=== PATIENT | female | born 1945 | race African-American/Black ===

== ENCOUNTER 2017-11-07 21:24 | Inpatient (IN) | payer OTHER ==
[~2017-11-07] VITALS: Ht 162.6 cm; Wt 53.5 kg
--- NOTE | ~2017-11-07 | PATH ---
[facility] [address] [place] [address] PATHOLOGY RPT PROCEDURE Name: ROSIBEL TAVARES Room #: 460-P [facility] IN M.R.#: [id number] Admission: 11/08/17 Date of : 45 Discharge: Report #: [id number] Path Case #: [id number] [facility] Accession Number: [id number] . 01 Material submitted: . LIVER BIOPSY . 01 Clinical history: . Generalized intrabdominal and pelvic swelling, mass and lump . 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 S/11/13/2017 . 02 Comment: Examination shows a small blue cell malignancy. Areas of necrosis are identified as well. Non-neoplastic liver parenchyma is not present. A portion of this specimen was sent for flow cytometric analysis to [facility] ([id number]). That analysis showed low viability specimen. Please see separate report for complete details. . Based on the morphology, multiple immunohistochemical stains are performed on Block A2. TTF shows strong nuclear reactivity. AE1/AE3 shows Golgi-like perinuclear reactivity. Synaptophysin shows strong reactivity. Chromogranin is nonreactive. CD45 is nonreactive. P63 is nonreactive, and CDX2 is nonreactive as well. The reactive immunohistochemical stains support the diagnosis rendered. . Co-review: Dr. Adrien oGrdon . Findings are telephoned to Dr. Moreira at 10:57 a.m. on 11/13/2017. . . (IUV:alfonzo; 11/13/2017) . 02 Electronically signed: . Aydee Johnston MD, Pathologist NPI- [id number] . 01 Gross description: . The specimen is received in formalin, labeled "Rosibel Tavares and liver biopsy", are 3 arguelles-wolfe needle cores measuring 0.5 cm, 1.1 cm and 1.5 cm in length and up to 0.1 cm in diameter. Specimen is entirely submitted in A1-A3. (SWS; 11/11/2017) [address] [address] PATHOLOGY RPT PROCEDURE Name: ROSIBEL TAVARES Room #: 460-P ADM IN M.R.#: [id number] Admission: 11/08/17 Date of : 45 Discharge: Report #: [id number] Path Case #: [id number] SHS/SHS . 02 Pathologist provided ICD-10: C78.7 . 02 CPT . 222766, X34162, V58629 Performed at: [address], [place], [place] [id number] MD Vivek Delong MD Phone: [phone] Performed at: [address] [id number] MD Aydee Johnston MD Phone: [phone]
--- NOTE | ~2017-11-07 | PATH ---
[facility] [address] [place] [address] PATHOLOGY RPT PROCEDURE Name: ROSIBEL TAVARES Room #: 460-P [facility] IN .R.#: [id number] Admission: 11/08/17 Date of : 45 Discharge: Report #: [id number] Path Case #: [id number] Note LCA Accession Number: [id number] TESTS RESULT FLAG UNITS REF RANGE LAB Clinician Provided Cytology Information No. of containers..01 Other (Miscellaneous) Source: 01 PLEURAL FLUID DIAGNOSIS: 02 PLEURAL FLUID NEGATIVE FOR MALIGNANT CELLS. THIS INTERPRETATION INCLUDES EVALUATION OF A CELL BLOCK. RARE MESOTHELIAL CELLS AMIDST CHRONIC INFLAMMATORY CELLS IDENTIFIED. SCANTLY CELLULAR SPECIMEN. Signed out by: 02 Aydee Johnston MD, Pathologist NPI- [id number] Performed by: 03 Eunice Tsai, Personal Carer ([facility]) Gross description: 01 12ML, RED, CLOUDY /LCS FLAG LEGEND: L-Low Normal,H-High Normal,LL-Alert Low,HH-Alert High <-Panic Low,>-Panic High,A-Abnormal,AA-Critical Abnormal Performed at: [address] [place] [address] Vivek Delong MD, [address] [address] Aydee Johnston MD, 03 [place] [id number] [address] [address] Rahul Anglin MD, Performed at: [address], [place], [place] [id number] MD Vivek Delong MD Phone: [phone]
--- NOTE | ~2017-11-07 | HC ---
[facility] [place] [address] CONSULTATION Name: ROSIBEL TAVARES Room #: 460-P ADM IN M.R.#: [id number] Admission: 11/08/17 Attend Phys: Margoth Moreira MD Discharge: Date of : 45 Report #: [id number] THIS REPORT FOR: //name// CC: Margoth Hope DATE OF SERVICE: 11/13/2017 PULMONARY CONSULTATION PRIMARY CARE PHYSICIAN: Dr. Hope. REFERRAL PHYSICIAN: Dr. Arboleda. REASON FOR REFERRAL: Pleural effusion. HISTORY OF PRESENT ILLNESS: The patient is a 72-year-old female who was admitted with abdominal pains. A CT abdomen and pelvis shows pleural effusion. A chest tube has been placed since admission. A pulmonary consultation was requested regarding management of the chest tube and pleural effusion. The patient was diagnosed with small cell lung cancer approximately 7 years ago. She has been followed by Dr. Dial at [facility]. She states that she underwent chemo and radiation therapy involving the right chest where the lung cancer was. She was doing fairly well until for the past several days she has noted lower abdominal pains. With worsening pains, she presented to Emergency Room. CT of the abdomen and pelvis was performed. This revealed a pleural fluid involving the right lower lobe, which appears to be complicated and loculated with dense complex collection of materials within the right lower lobe, liver mass measuring up to 8 cm in diameter, possible necrotic mass and abscess. She then subsequently had a chest tube placed on the right by interventional radiology. She also has a tube placed into the liver. A pulmonary consultation was requested regarding management of the chest tube. Presently, she has mild abdominal discomfort. Otherwise, denies any dyspnea, night sweats or chills or productive cough. She has lost approximately 7 pounds over the last couple of months. [facility] [address] [place] [address] CONSULTATION Name: ROSIBEL TAVARES Room #: 460-P [facility] IN [facility].#: [id number] Admission: 11/08/17 Attend Phys: Margoth Moreira MD Discharge: Date of : 45 Report #: [id number] Otherwise, denies any night sweats, fever or chills. PAST MEDICAL HISTORY: Notable for small cell lung cancer diagnosed in 2011. Of note, the records suggest that the patient was diagnosed with non-small cell, but this was confirmed by the patient stating that she had small cell lung cancer involving the right lung. Radiation and chemotherapy was given, history of hypertension, diabetes mellitus, type 2. ALLERGIES: None to medications. HOME MEDICATIONS: Losartan, Actos, Glucophage, Amaryl, Cardizem. FAMILY HISTORY: Noncontributory. SOCIAL HISTORY: The patient continues to smoke less than a pack a day. She drinks socially. REVIEW OF SYSTEMS: As mentioned above, otherwise 10-point system review negative. PHYSICAL EXAMINATION: GENERAL: She is awake, alert, in no apparent distress. VITAL SIGNS: Temperature is 98 degrees Fahrenheit, pulse is 90, respiratory rate is 18, blood pressure 120/66 mmHg, saturation 98%. HEENT: Normocephalic, atraumatic. NECK: Supple, without any lymphadenopathy or thyromegaly. CHEST: Breath sounds are decreased bilaterally, few scattered crackles in the right base. CARDIOVASCULAR: Normal S1, S2. No murmurs or gallop. There is no JVD. There is no carotid bruit. Pulses are 2+/4+ bilaterally. ABDOMEN: Soft, nontender, no organomegaly or masses felt. GENITOURINARY: Deferred. RECTAL: Deferred. EXTREMITIES: There is no edema, cyanosis or clubbing. LABORATORY DATA: CT abdomen and pelvis as mentioned above is showing placement of a right chest tube, what appears to be loculated pleural fluid, placement of a drain in the right hepatic lobe, which appears to be necrotic mass, large pancreatic mass or abscess seen in the right base, 3 x 4 cm mass in the right posterior chest wall, abnormal appearing right posterior 12th rib adjacent to the right lower lobe mass consistent with metastatic disease, gallstones without evidence of cholecystitis. Pleural fluid chemistry shows pH of 7.6, protein was 2.6, albumin 1.1, LDH was 385, glucose was 93. CT needle biopsy of the right posterior chest wall mass was performed. Pleural fluid for cytology was negative for malignant cells. Liver biopsy was negative for malignant cells. Pleural fluid cell count grossly unremarkable. Pleural fluid cytology is [address] [address] CONSULTATION Name: ROSIBEL TAVARES Room #: 460-P ADM IN M.R.#: [id number] Admission: 11/08/17 Attend Phys: Margoth Moreira MD Discharge: Date of : 45 Report #: [id number]. Electrolytes are normal, creatinine is 1.8. Liver enzymes are mildly abnormal. Hemoglobin 9.6, WBC 10,500, platelets are normal. Albumin 2.6. IMPRESSION: 1. Right lower lobe lung mass, loculated effusion, liver mass in this 72-year-old female with past history of small cell lung cancer in 2011. She had undergone chemo and radiation therapy. Findings suggest recurrence of small cell lung cancer. Pathology and cytology findings so far negative for malignant cells, but preliminary report from one of the studies suggest possible recurrence of small cell lung cancer. 2. Abdominal pain, likely related to above process. 3. Urinary tract infection. 4. Renal insufficiency, ? acute. 5. Diabetes mellitus, type 2. 6. Hypertension. 7. Recent weight loss due to above process. RECOMMENDATION AND DISCUSSION: The patient appears to have loculated or complicated pleural effusion. The pleural fluid analysis shows evidence of exudate, but is not empyema. I think we can safely discontinue the chest tube and observe. The pleural fluid is likely related to recurrence of malignancy. In regards to the drain left in the liver mass, we will defer to primary team and interventional radiology. This appears that this could be discontinued also. We will await the final pathology report concerning possible recurrence of small cell lung cancer. Therefore, I think we can safely remove the chest tube and observe for now as the fluid appears to be loculated. I realize there is some output from the chest tube. Treating for the underlying problem will hopefully help resolve the pleural fluid. She did not have a formal chest CT and this is recommended and one will be performed. This was discussed in detail with the patient and her family including Dr. Arboleda. Thank you for this consultation. <ELECTRONICALLY SIGNED> By: Harris Bearden MD 11/14/17 1633 [id number] [id number] Harris Bearden MD /nt
--- NOTE | ~2017-11-07 | PATH ---
[facility] [place] [address] [place] [address] PATHOLOGY RPT PROCEDURE Name: ROSIBEL TAVARES Room #: 460-P ADM IN M.R.#: [id number] Admission: 11/08/17 Date of : 45 Discharge: Report #: [id number] Path Case #: [id number] Note LCA Accession Number: [id number] TESTS RESULT FLAG UNITS REF RANGE LAB Clinician Provided Cytology Information No. of containers..01 Other (Miscellaneous) Source: 01 LIVER ABSCESS DIAGNOSIS: 02 LIVER ABSCESS NEGATIVE FOR MALIGNANT CELLS. THIN HYPOCELLULAR SMEAR(S) CONSIDERED ONLY MARGINALLY ADEQUATE FOR VALID CYTOPATHOLOGIC INTERPRETATION THIS INTERPRETATION INCLUDES EVALUATION OF A CELL BLOCK. SPECIMEN CONSISTS OF BLOOD AND ELEMENTS OF PERIPHERAL BLOOD ONLY. Comment: The provided clinical impression of abscess or mass are noted. There are no hepatocytes present. Acute inflammation or degenerated changes are not identified. There are no malignant epithelial cells present. Sample may not be order entry representative; correlate clinically and follow-up with a repeat aspiration of this lesion if clinically indicated. Signed out by: 02 Aydee Johnston MD, Pathologist NPI- [id number] Performed by: 03 Eunice Tsai, Forensic Psychiatrist ([facility]) Gross description: 01 5ML, RED, CLOUDY /LCS FLAG LEGEND: L-Low Normal,H-High Normal,LL-Alert Low,HH-Alert High <-Panic Low,>-Panic High,A-Abnormal,AA-Critical Abnormal Performed at: 01 [facility] [address] [place] [address] Vivek Delong MD, [address] [facility] [address] [address] Aydee Johnston MD, [address] [address] [address] Rahul Anglin MD, Performed at: 01 [facility] [address] [place] [address] PATHOLOGY RPT PROCEDURE Name: ROSIBEL TAVARES Room #: 460-P [facility] IN M.R.#: [id number] Admission: 11/08/17 Date of : 45 Discharge: Report #: [id number] Path Case #: [id number] [facility] [address], [place], [place] [id number] MD Vivek Delong MD Phone: [phone]
--- NOTE | ~2017-11-07 | HC ---
[facility] [place] [place] [address] CONSULTATION Name: ROSIBEL TAVARES Room #: 460-P [facility] IN M.R.#: [id number] Admission: 11/08/17 Attend Phys: Emery Carrera MD Discharge: Date of : 45 Report #: [id number] THIS REPORT FOR: //name// [facility] DATE OF SERVICE: 11/09/2017 CONSULTATION: Infectious Disease. HISTORY OF PRESENT ILLNESS: The patient is a 72-year-old female admitted to the hospital through the ER on 11/08 complaining about 2 months of increasing abdominal pain. The patient had been just dealing with this, but on the day of admission she rated her pain on a scale of 1 to 10 as an "8." The CT scan was performed, which showed necrotic contiguous mass in the right lower lobe and liver. Infectious Disease consultation was requested because of concern this may represent a necrotic abscess. PAST HISTORY: Significant for nonsmall cell cancer of the lung on the right side in 2011. This was treated with chemo and radiation therapy. The patient has had a longstanding iron deficient anemia, has required iron supplementation and transfusions. Other diagnoses include diabetes and hypertension. MEDICATION RECONCILIATION: The patient's current medication regimen includes Tylenol 650 mg q. 4 p.r.n., Cardizem 360 mg p.o. daily, glimepiride 2 mg daily, hydrochlorothiazide 25 mg daily, insulin lispro sliding scale, losartan 50 mg daily, morphine 4 mg p.r.n., Mylicon chewable 80 mg p.r.n., Zofran 4 mg IV p.r.n. nausea and vomiting, pioglitazone 15 mg p.o. daily, Zosyn 3.375 mg q. 12 hours and MiraLax 17 grams daily p.r.n. FAMILY HISTORY: Noncontributory. SOCIAL HISTORY: The patient is . She lives with her . She did quit smoking after her cancer diagnosis in 2011, but within a year was smoking again. She says she currently smokes less than a pack per day. No history of alcohol. REVIEW OF SYSTEMS: GENERAL: The patient is not complaining of fevers, chills, sweats, weight loss. ENT: No headache, sinus congestion, sore throat, trouble swallowing. CHEST: No cough, chest pain, shortness of breath. GASTROINTESTINAL: The patient had nausea and no vomiting. She had abdominal pain in the low abdomen radiating to the flanks. She said she felt bloated and gassy. She has had some constipation. GENITOURINARY: No complaints. [facility] [address] [place] [address] CONSULTATION Name: ROSIBEL TAVARES Room #: 460-P [facility] IN M.R.#: [id number] Admission: 11/08/17 Attend Phys: Emery Carrera MD Discharge: Date of : 45 Report #: [id number] EXTREMITIES: No complaints. PHYSICAL EXAMINATION: GENERAL: The patient appears her stated age, alert, oriented, comfortable, not in any distress. VITAL SIGNS: Normal. The patient is afebrile. The maximum measured temperature was 37.3 and blood pressure 165/71. SKIN: Shows no rash, lesion or exanthem. ENT: Negative. The patient is cogent and pleasant. NECK: Supple. HEART: Sounds normal. LUNGS: Clear. ABDOMEN: Belly is somewhat distended, soft and not especially tender and the patient has a new chest tube as well as a liver drain. There is minimal drainage in either tubing. EXTREMITIES: Unremarkable. LABORATORY DATA: White count is 11.6, hemoglobin was 6.1 on admission transfused up to 7.5, but now is back down to 6.8 with 21% hematocrit, MCV is 66 and prior to transfusion, platelets 363,000. Electrolytes are normal. BUN 23, creatinine 1.4 and glucose 216. The liver function tests are normal. Albumin 3.2. CT scan showed the necrotic mass or abscess in the right lower lobe and liver. Of note, her oncologist mentioned that CT scan done in September of this year, which apparently was unremarkable. Fluid from the thoracentesis showed 122 white cells, 58% polys, 4300 red cells, protein was 2.6 and glucose 93. Blood cultures x 2 are negative. Cultures of the urine, chest fluid and liver fluid are pending. Cytology studies are pending. In summary, the patient who had an unremarkable CT scan last month, but now has a complex mass with air fluid levels in the right lower lobe going through the diaphragm to the liver. Her only symptoms are abdominal pain, which seemed to be under control and bloating with nausea. She has not had any fevers or chills. She has not had any significant pulmonary symptoms. At this time, the picture is more suggestive to me of tumor rather than abscess. She has had no fevers, chills, cough or other signs of inflammation. It would be unusual to have this much cancer develop from September to October, so we may want to review that previous scan more carefully. I believe, it was at [facility]. If this is infection one can anticipate pulmonary type sintia. The necrotizing component suggests anaerobes. Zosyn will be effective broad-spectrum coverage for the expected sintia in the liver and kidney and community-acquired infection. We can continue that. We will await results of the thoracentesis and liver abscess drain of both cultures and cytology. I suspect there may be a diagnosis in this fluid. If not, we can consider pursuing a tissue diagnosis either percutaneously or bronchoscopically. We could pursue urinary antigens for pneumococcus and legionella, but these seem [facility] [address] [place] [address] CONSULTATION Name: ROSIBEL TAVARES Room #: 460-P ADM IN M.R.#: [id number] Admission: 11/08/17 Attend Phys: Emery Carrera MD Discharge: Date of : 45 Report #: [id number] less likely to be useful. I will check a hemoglobin A1c and a prealbumin. We will continue Zosyn for now until we have a more firm diagnosis and can make a specific plan. I appreciate the opportunity of input in the care of this pleasant family. Dr. Mcintyre will return on Friday for additional infectious disease followup. By: 15 6634 Farhan Doty MD /nt
[2017-11-07 21:32] VITALS: BP 204/89
[2017-11-07 21:36] LABS: URINE BILIRUBIN NEGATIVE (Negative); URINE BLOOD TRACE (Negative); URINE CLARITY CLEAR; URINE COLOR YELLOW; URINE GLUCOSE-RANDOM* TRACE (Negative); URINE KETONES NEGATIVE (Negative); URINE LEUKOCYTES 3+ (Negative); URINE NITRITE NEGATIVE (Negative); URINE PROTEIN (DIPSTICK) NEGATIVE (Negative); URINE UROBILINOGEN 0.2 E.U./dl (0.2-1.0)
[2017-11-07 21:49] LABS: CASTS None Seen /LPF (None Seen); MUCUS 0-3 Light strn/LPF (None Seen); SQUAMOUS 0-3 Few /LPF (0-3)
[2017-11-07 21:50] LABS: URINE RBC 0-2 Rare /HPF (0-2)
[2017-11-07 21:51] LABS: BACTERIA 1-9 Few /HPF (None Seen); CRYSTALS None Seen /LPF (None Seen); WBC CLUMPS Few (None Seen)
[2017-11-07] MEDS ORDERED: VITAMIN D-32000 UNI1 PO (22:21)
[2017-11-07] MEDS ORDERED: LOSARTAN-HCTZ1 EAC2 PO (22:21)
[2017-11-07] MEDS ORDERED: PIOGLITAZONE15 MG (22:22)
[2017-11-07] MEDS ORDERED: METFORMIN HCL500 MG PO (22:23)
[2017-11-07] MEDS ORDERED: CARDIZEM CD180 MG PO (22:24)
[2017-11-07] MEDS ORDERED: AMARYL2 M1 PO (22:24)
[2017-11-07 22:32] LABS: ANION GAP 11 mmol/L (7-16); BUN 29 mg/dL (7-18); CALCIUM 8.7 mg/dL (8.5-10.1); CHLORIDE 97 mmol/L (98-107); CO2 26 mmol/L (21-32); CREATININE 1.6 mg/dL (0.6-1.0); GLUCOSE 216 mg/dL (74-106); POTASSIUM 3.9 mmol/L (3.5-5.1); SODIUM 134 mmol/L (136-145)
[2017-11-07 22:38] LABS: ALBUMIN 3.2 g/dL (3.4-5.0); DIRECT BILIRUBIN < 0.1 mg/dL (<0.1-0.3); LIPASE 224 U/L (73-393); SGOT 29 U/L (15-37); SGPT 17 U/L (30-65); TOTAL BILIRUBIN 0.2 mg/dL (<0.1-1.0); TOTAL PROTEIN 7.8 g/dL (6.4-8.2)
[2017-11-07 22:57] LABS: ABSOLUTE NEUTROPHILS 6.6 thou/uL (1.4-8.2); BASOPHILS 0.7 % (0.0-2.0); EOSINOPHILS 0.3 % (0.0-3.0); MCH 21.8 pg (26.0-34.0); MCHC 32.7 g/dL (28.0-37.0); MCV 66.9 fL (80.0-100.0); MONOCYTES 9.7 % (1.0-8.0); PLATELET COUNT 400 thou/uL (150-400); POLYS 83.3 % (36.0-66.0); RDW 19.8 % (10.5-14.5)
[2017-11-07 23:01] LABS: HEMATOCRIT 19.4 % (37.0-47.0); HEMOGLOBIN 6.3 gm/dL (12.0-15.0)
[2017-11-08] VITALS (11 sets, daily range): BP systolic 132–198; BP diastolic 60–84
[2017-11-08 00:17] LABS: ANISOCYTOSIS 2+; HYPOCHROMASIA 2+; MICROCYTES 2+; POLYCHROMASIA 1+
[2017-11-08 00:18] LABS: OVALOCYTES 1+; POIKILOCYTOSIS 1+
[2017-11-08 08:14] LABS: RDW 20.1 % (10.5-14.5); WBC 7.3 thou/uL (4.0-11.0)
[2017-11-08 08:15] LABS: MCH 21.6 pg (26.0-34.0); MCHC 32.7 g/dL (28.0-37.0); MCV 66.2 fL (80.0-100.0); RBC 2.81 mil/uL (4.20-5.00)
[2017-11-08 08:24] LABS: CALCIUM 8.2 mg/dL (8.5-10.1); CREATININE 1.4 mg/dL (0.6-1.0); POTASSIUM 3.5 mmol/L (3.5-5.1)
[2017-11-08 08:34] LABS: HEMATOCRIT 18.6 % (37.0-47.0); HEMOGLOBIN 6.1 gm/dL (12.0-15.0)
[2017-11-08 11:43] LABS: APTT 31.4 Seconds (24.5-32.8); PROTIME 10.5 Seconds (9.3-11.4)
[2017-11-08 17:14] LABS: BF NUCLEATED CELLS 122; BF RBC 4312
[2017-11-08 17:18] LABS: COLOR YELLOW; TOTAL VOLUME 50 mL
[2017-11-08 17:19] LABS: CLARITY HAZY
[2017-11-08 18:59] LABS: BF MACROPHAGE 5; BF NEUTROPHILS 37; SOURCE THORACENTESIS
[2017-11-08 22:27] LABS: HEMATOCRIT 23.5 % (37.0-47.0); HEMOGLOBIN 7.5 gm/dL (12.0-15.0)
[2017-11-09 00:20] VITALS: BP 140/56
[2017-11-09 04:45] VITALS: BP 165/71
[2017-11-09 06:42] LABS: HEMOGLOBIN 6.8 gm/dL (12.0-15.0)
[2017-11-09 06:46] LABS: SOURCE THORACENTESIS
[2017-11-09 06:46] LABS: HEMATOCRIT 21.3 % (37.0-47.0); MCH 22.5 pg (26.0-34.0); MCHC 31.9 g/dL (28.0-37.0); MCV 70.4 fL (80.0-100.0); RBC 3.02 mil/uL (4.20-5.00); RDW 22.3 % (10.5-14.5); WBC 11.6 thou/uL (4.0-11.0)
[2017-11-09 07:45] VITALS: BP 157/66
[2017-11-09 11:05] LABS: BODY FLUID ALBUMIN 1.5 g/dL (()); BODY FLUID AMYLASE 32 U/L (()); BODY FLUID GLUCOSE 93 mg/dL (()); BODY FLUID LDH 385 IU/L (()); BODY FLUID PROTEIN 2.6 g/dL (())
[2017-11-09 16:14] VITALS: BP 167/69
[2017-11-09 19:27] VITALS: BP 168/74
[2017-11-09 19:58] VITALS: BP 168/78; BP 174/65
[2017-11-10] VITALS (8 sets, daily range): BP systolic 147–174; BP diastolic 67–82
[2017-11-10 06:25] LABS: HEMATOCRIT 26.4 % (37.0-47.0); HEMOGLOBIN 8.4 gm/dL (12.0-15.0); MCH 23.4 pg (26.0-34.0); MCHC 31.7 g/dL (28.0-37.0); MCV 73.7 fL (80.0-100.0); RBC 3.59 mil/uL (4.20-5.00); RDW 22.2 % (10.5-14.5); WBC 12.4 thou/uL (4.0-11.0)
[2017-11-10 06:54] LABS: ALBUMIN 2.7 g/dL (3.4-5.0); CALCIUM 8.7 mg/dL (8.5-10.1); CREATININE 1.5 mg/dL (0.6-1.0); POTASSIUM 3.8 mmol/L (3.5-5.1); TOTAL BILIRUBIN 0.6 mg/dL (<0.1-1.0); TOTAL PROTEIN 6.9 g/dL (6.4-8.2)
[2017-11-11] VITALS: BP 177/81
[2017-11-11 04:00] VITALS: BP 191/86
[2017-11-11 06:20] LABS: HEMATOCRIT 28.9 % (37.0-47.0); HEMOGLOBIN 9.2 gm/dL (12.0-15.0); MCH 23.6 pg (26.0-34.0); MCHC 31.8 g/dL (28.0-37.0); MCV 74.2 fL (80.0-100.0); PLATELET COUNT 357 thou/uL (150-400); RDW 22.8 % (10.5-14.5); WBC 12.5 thou/uL (4.0-11.0)
[2017-11-11 06:33] LABS: CALCIUM 8.7 mg/dL (8.5-10.1); CREATININE 1.8 mg/dL (0.6-1.0); POTASSIUM 3.7 mmol/L (3.5-5.1)
[2017-11-11 07:56] VITALS: BP 160/94
[2017-11-11 07:58] LABS: ABSOLUTE NEUTROPHILS 10.8 thou/uL (1.4-8.2); METAMYELOCYTES 1 %
[2017-11-11 08:00] LABS: ANISOCYTOSIS 3+; POLYCHROMASIA SLIGHT
[2017-11-11 08:01] LABS: HYPOCHROMASIA 1+; MICROCYTES 1+
[2017-11-11 08:02] LABS: MACROCYTES FEW
[2017-11-11 08:03] LABS: POIKILOCYTOSIS SLIGHT
[2017-11-11 17:15] VITALS: BP 160/87
[2017-11-11 18:11] LABS: GLYCOHEMOGLOBIN (HGB A1C) 5.8 % (4.8-5.6)
[2017-11-11 19:31] VITALS: BP 166/81
[2017-11-12 04:16] VITALS: BP 149/81
[2017-11-12 08:00] VITALS: BP 159/98
[2017-11-12 15:35] VITALS: BP 132/74
[2017-11-12 20:52] VITALS: BP 147/69
[2017-11-13 04:35] VITALS: BP 125/60
[2017-11-13 04:58] LABS: ABSOLUTE NEUTROPHILS 8.7 thou/uL (1.4-8.2); BASOPHILS 0.5 % (0.0-2.0); EOSINOPHILS 0.9 % (0.0-3.0); HEMATOCRIT 29.3 % (37.0-47.0); HEMOGLOBIN 9.6 gm/dL (12.0-15.0); LYMPHOCYTES 7.6 % (24.0-44.0); MCH 24.5 pg (26.0-34.0); MCHC 32.7 g/dL (28.0-37.0); MCV 75.1 fL (80.0-100.0); MONOCYTES 7.7 % (1.0-8.0); PLATELET COUNT 338 thou/uL (150-400); POLYS 83.3 % (36.0-66.0); RBC 3.91 mil/uL (4.20-5.00); WBC 10.5 thou/uL (4.0-11.0)
[2017-11-13 05:03] LABS: CALCIUM 8.5 mg/dL (8.5-10.1); CREATININE 1.8 mg/dL (0.6-1.0); POTASSIUM 3.8 mmol/L (3.5-5.1)
[2017-11-13 07:27] VITALS: BP 125/66
[2017-11-13 15:37] VITALS: BP 129/70
[2017-11-13 16:56] LABS: ALBUMIN 2.6 g/dL (3.4-5.0); DIRECT BILIRUBIN < 0.1 mg/dL (<0.1-0.3); SGOT 36 U/L (15-37); SGPT 21 U/L (30-65); TOTAL BILIRUBIN 0.2 mg/dL (<0.1-1.0); TOTAL PROTEIN 6.7 g/dL (6.4-8.2)
[2017-11-13 20:10] VITALS: BP 129/67
[2017-11-14 05:26] VITALS: BP 126/64
[2017-11-14 05:58] LABS: ABSOLUTE NEUTROPHILS 9.2 thou/uL (1.4-8.2); BASOPHILS 0.4 % (0.0-2.0); EOSINOPHILS 0.6 % (0.0-3.0); HEMATOCRIT 29.7 % (37.0-47.0); HEMOGLOBIN 9.5 gm/dL (12.0-15.0); LYMPHOCYTES 7.9 % (24.0-44.0); MCH 24.2 pg (26.0-34.0); MCV 75.7 fL (80.0-100.0); MONOCYTES 6.9 % (1.0-8.0); PLATELET COUNT 360 thou/uL (150-400); POLYS 84.2 % (36.0-66.0); RBC 3.92 mil/uL (4.20-5.00); RDW 24.9 % (10.5-14.5); WBC 10.9 thou/uL (4.0-11.0)
[2017-11-14 06:15] LABS: ALBUMIN 2.5 g/dL (3.4-5.0); CALCIUM 8.7 mg/dL (8.5-10.1); CREATININE 1.7 mg/dL (0.6-1.0); POTASSIUM 3.9 mmol/L (3.5-5.1); TOTAL BILIRUBIN 0.3 mg/dL (<0.1-1.0); TOTAL PROTEIN 6.5 g/dL (6.4-8.2)
[2017-11-14 07:33] VITALS: BP 130/61
[2017-11-14 15:50] VITALS: BP 118/54
[2017-11-14] MEDS ORDERED: MIRALAX17 GM PO (18:21)
[2017-11-14] MEDS ORDERED: SIMETHICON CHEW80 M1 PO (18:21)
[2017-11-14] MEDS ORDERED: ULTRACET TABLET1 TAB PO (18:22)
[2017-11-14 18:38] VITALS: BP 118/54
[2017-11-14] MEDS ORDERED: COLACE100 MG PO (18:45)
== END 2017-11-14 18:52 | disposition home health service (06) | DRG 180 ==
LOC: ER 21:24 → 4W 11-08 01:09 → EROBS 11-08 01:09 → 4W 11-08 01:49 → ENTRNSPT 11-14 18:46 → 4W 11-14 18:52
PROVIDERS: Emergency Medicine; Hospitalist; Internal Medicine Infectious Disease; Nurse Practitioner Family
PROC: 0W9930Z Drainage of Right Pleural Cavity with Drainage Device, Percutaneous Approach (ICD-10-PCS; principal; 2017-11-08)
PROC: 30233N1 Transfusion of Nonautologous Red Blood Cells into Peripheral Vein, Percutaneous Approach (ICD-10-PCS; principal; 2017-11-08)
PROC: 0F913ZX Drainage of Right Lobe Liver, Percutaneous Approach, Diagnostic (ICD-10-PCS; principal; 2017-11-08)
PROC: 0WB83ZX Excision of Chest Wall, Percutaneous Approach, Diagnostic (ICD-10-PCS; 2017-11-10)
DX: C76.1 Malignant neoplasm of thorax (principal); K75.0 Abscess of liver; E43 Unspecified severe protein-calorie malnutrition; J90 Pleural effusion, not elsewhere classified; N17.9 Acute kidney failure, unspecified; N39.0 Urinary tract infection, site not specified; C78.01 Secondary malignant neoplasm of right lung; R16.0 Hepatomegaly, not elsewhere classified; R91.8 Other nonspecific abnormal finding of lung field; D64.9 Anemia, unspecified; I12.9 Hypertensive chronic kidney disease with stage 1 through stage 4 chronic kidney disease, or unspecified chronic kidney disease; N18.9 Chronic kidney disease, unspecified; F17.210 Nicotine dependence, cigarettes, uncomplicated; D50.9 Iron deficiency anemia, unspecified; E11.22 Type 2 diabetes mellitus with diabetic chronic kidney disease; Z79.899 Other long term (current) drug therapy; Z68.20 Body mass index [BMI] 20.0-20.9, adult; Z91.14 Patient's other noncompliance with medication regimen
CPT/HCPCS: 10045